=== PATIENT | male | born 1960 | race Caucasian/White ===

== ENCOUNTER → 2021-03-01 | Outpatient (CLI) | payer OTHER ==
--- NOTE | 2021-03-01 15:25 | CT ---
EXAMINATION TYPE: CT angio neck DATE OF EXAM: 03/01/2021 HISTORY: Occlusion and stenosis of unspecified carotid; bilateral carotid artery abnormalities per pa tient. COMPARISON: NONE CT DLP: 320.2 mGycm. Automated Exposure Control for Dose Reduction was Utilized. TECHNIQUE: CTA scan of the neck is performed with IV Contrast, patient injected with 65 mL of Isovue 370, axial images are obtained, coronal and sagittal reformatted images are reviewed. 3D reconstruct ed images are created on an independent workstation and reviewed. FINDINGS: Carotid/Vascular Structures: Normal three-vessel origin from aortic arch. No significant plaque or st enosis. Normal origin right common carotid artery from the right brachiocephalic artery. No signific ant plaque or stenosis in the common carotid arteries bilaterally. Moderate mixed plaque left carotid bulb is present extending into proximal internal carotid artery without significant stenosis. Modera te calcified plaque supraclinoid segment distal left internal carotid artery without significant sten osis. Patent left external carotid artery without significant stenosis. More severe noncalcified plaque right carotid bulb extends into proximal internal and external caroti d arteries causing less prominent but significant stenosis in the external carotid artery. There is s evere stenosis at origin of the right internal carotid artery seen best image 52 series 4. Lumen diam eter narrowed to 0.6 mm at this level short segment with reconstitution to 4.5 mm distal to this. GILBERTO CET remainder right internal carotid artery shows mild to moderate calcified plaque in the petrous an d supraclinoid segment with tortuosity but no additional significant stenosis. Other: Partial visualization of post-CABG changes. IMPRESSION: Significant focal stenosis at origin of the right internal carotid artery measured near 9 0 % by NASCET criteria.
== END | disposition home or self-care (01) ==
LOC: RADCTMAIN 13:29
PROVIDERS: ATTEND Internal Medicine Interventional Cardiology
DX: I65.21 Occlusion and stenosis of right carotid artery (principal)
CPT/HCPCS: 70498; Q9967

== ENCOUNTER → 2021-03-09 | Outpatient (CLI) | payer OTHER ==
[2021-03-09 16:11] LABS: HCT 40.4 % (39.6-50.0); HGB 13.1 g/dL (13.0-17.0); MCHC 32.4 g/dL (32.0-37.0); MCV 92.7 fL (80.0-97.0); Platelet Count 239 X 10*3/uL (140-440); RBC 4.36 X 10*6/uL (4.40-5.60); RDW 13.2 % (11.5-14.5); WBC 9.39 X 10*3/uL (4.50-10.00)
[2021-03-09 21:08] LABS: African American GFR (CKD) 93.7 (60.0-200.0); Anion Gap 9.4 mmol/L (4.00-12.00); Carbon Dioxide 24.6 mmol/L (21.6-31.8); Non-African American GFR(CKD) 80.9 (60.0-200.0); Potassium 4.7 mmol/L (3.5-5.5)
== END | disposition home or self-care (01) ==
LOC: LABWHC1 10:46
PROVIDERS: ATTEND Internal Medicine Interventional Cardiology
DX: Z01.812 Encounter for preprocedural laboratory examination (principal); I25.5 Ischemic cardiomyopathy
CPT/HCPCS: 36415; 80051; 82565; 83735; 84520; 85027

== ENCOUNTER 2021-03-15 09:27 | Day surgery (SDC) | payer OTHER ==
[2021-03-11 08:50] VITALS: BMI 26.5
[~2021-03-15 09:27] MED LIST: ALPRAZolam 0.25 MG TAB PO PRN; ALPRAZolam 0.5 MG TAB PO PRN; ASPIRIN 325 MG TAB PO STA; HEPARIN SODIUM,PORCINE 10,000 UNIT in SODIUM CHLORIDE 0.9% 1,000 ML IRRIGATION PRN; HEPARIN SODIUM,PORCINE 2,500 UNIT in SODIUM CHLORIDE 0.9% 250 ML IRRIGATION PRN; NITROGLYCERIN SL TABS 0.4 MG TAB SUBLINGUAL PRN; SODIUM CHLORIDE 0.9% 1,000 ML in EMPTY BAG 1 BAG IV ONE
[2021-03-15] MEDS ORDERED: SODIUM CHLORIDE 0.9% 1,000 ML IV ONE (09:49)
[2021-03-15] MEDS ORDERED: LIDOCAINE 1% INJ 10MG/ML (20 ML MDV) ONE (10:38)
[2021-03-15] MEDS ORDERED: MIDAZOLAM 2 MG/2 ML VIAL IV ONE (11:11)
[2021-03-15] MEDS ORDERED: LIDOCAINE 1% INJ 10MG/ML (20 ML MDV) SQ ONE (11:12)
[2021-03-15] MEDS ORDERED: IOPAMIDOL-370 100ML BTL INJ ONE ×2 (11:32→12:03)
[2021-03-15] MEDS: HEPARIN SODIUM 1,000 UN/ML (10ML VL) IV ONE ×2 (11:39→11:52)
[2021-03-15] MEDS ORDERED: NITROGLYCERIN 1000MCG/10ML SYRINGE INTRACORON ONE (11:58)
[2021-03-15] MEDS ORDERED: TICAGRELOR 90 MG TAB ONE (12:00)
[2021-03-15] MEDS ORDERED: TICAGRELOR 90 MG TAB PO ONE (12:02)
[2021-03-15] MEDS ORDERED: SODIUM CHLORIDE 0.9% 1,000 ML IV SCH (12:30)
--- NOTE | 2021-03-15 19:43 | CC ---
CARDIAC CATHETERIZATION REPORT DATE OF SERVICE: 03/15/2021. PROCEDURE PERFORMED: 1. Left heart catheterization and coronary angiography with selective injection of bypass grafts. 2. PTCA and stenting of saphenous vein graft to the obtuse marginal 1 branch of circumflex with a drug-eluting stent. PERFORMED BY: Dr. Anna Kam. Moderate conscious sedation time was 54 minutes. The patient was administered Versed. Oxygen saturation, hemodynamics and EKG were monitored closely. CLINICAL INFORMATION: Mr. Tung Landis is a 61-year-old gentleman with a known history of CAD, prior aortocoronary bypass surgery in 2009. He also has hypertension, hyperlipidemia. He underwent aortocoronary bypass surgery after cardiac cath revealed significant left main and left system disease. He had a TIJERINA to LAD, separate vein graft to the diagonal, and another vein graft to the OM1 and vein graft to the OM2. RCA was not grafted at that time, was free of significant disease. There was some PLV narrowing and PLV was a small branch. Because of significant symptoms of angina and a positive stress test, he was advised cardiac cath after due discussion. He also has a significant disease involving his right internal carotid artery at the origin as well. PROCEDURE NOTE: Under strict aseptic precautions and local anesthesia, a 6-Sami introducer was placed in the right femoral artery. Using a standard left Deidra catheter, I performed selective coronary angiography of the left system. A Jessica catheter was used to perform selective coronary angiography of the TIJERINA graft, 2 graft to the circumflex system, OM1 and OM2. I used an AR2 catheter to perform selective coronary angiography of a totally occluded vein graft to the diagonal. A pigtail catheter was used to check LV pressure but LV gram was not performed. I then made a decision to proceed with PCI of the OM1 graft and performed this expeditiously. CARDIAC CATHETERIZATION FINDINGS: Left ventricular end-diastolic pressure was about 10-12 mmHg without any gradient across aortic valve. CORONARY ANGIOGRAPHY FINDINGS: LEFT MAIN CORONARY ARTERY: This is a long vessel, highly diseased 70-80 percent and bifurcates into LAD and circumflex. The entire left main appears to be diseased, has about a 70% to 80% blockage. LEFT ANTERIOR DESCENDING CORONARY ARTERY: This vessel is occluded in the midportion with some competitive flow. The opacified segment is highly diseased. Diagonal branch comes off which also appears to have diffuse disease. LEFT POSTERIOR CIRCUMFLEX CORONARY ARTERY: This vessel has a 99% proximal stenosis, gives off a 1st obtuse marginal branch that is totally occluded with limited flow. RIGHT CORONARY ARTERY: Dominant vessel which was free of significant disease before, is now totally occluded with bridging collaterals, fills the distal portion of the RCA. It appears that the vessel has bridging collaterals, is totally occluded and there is a gap of more than 30 mm. There is a conus branch that comes off which also provides some collaterals to the distal RCA. Saphenous vein graft to the obtuse marginal branch of circumflex: This graft is patent in the proximal and midportion. Distal portion of the body of the graft has a 95% stenosis. Then beyond the insertion site, the OM1 also has a 95% stenosis. The flow is somewhat sluggish into the OM. Saphenous vein graft to the second obtuse marginal branch of circumflex: This graft is widely patent. Has no significant disease at its origin, course and insertion site and opacified segment of the second obtuse marginal is widely patent with remarkably good flow and mild diffuse disease. The saphenous vein graft to the diagonal branch: This graft is totally occluded and seen as a stump. Left internal mammary artery graft to LAD: This graft is tortuous, free of significant disease. The TIJERINA opacifies the entire LAD. The distal LAD has a 95% stenosis before it curves over the apex. The proximal portion of the LAD is also filled. It goes back and opacifies the diagonal branch. The opacified LAD has significant diffuse disease seen throughout in the proximal portion, but distal to the insertion site, the LAD is of good caliber, free of significant disease, except the distal segment there is a 95% stenosis with limited amount of myocardium beyond the stenosis. FINAL IMPRESSION: This patient has normal filling pressures. No gradient. There is significant progression of disease. [place] RCA, which was free of significant disease, now has 100% stenosis with bridging collaterals. There is total occlusion of the LAD and circumflex. The left main has 80% stenosis. Two vein grafts to the obtuse marginal were opacified. One is patent with good flow. Obtuse marginal 2 is patent with good flow but obtuse marginal 1 has a 95% stenosis. Flow is sluggish. The vein graft to the diagonal is occluded. The TIJERINA to LAD is patent but there is diffuse disease in the proximal LAD as well as the diagonal branch. LV gram was not performed. RECOMMENDATION: I am advising PCI of obtuse marginal 1. I will refer him to [facility] for C2 intervention of RCA which is a somewhat difficult procedure with a low success rate. PCI PROCEDURE DETAILS: I used a left coronary bypass guide catheter of 6-Sami caliber and a run-through wire. Predilatation was performed with a 15 mm long NC Trek balloon of 2.5 caliber. I deployed a 2.75 caliber 12 mm Xience stent in the OM1 and distal to the insertion site into the [place] vessel. Excellent angiographic result was achieved. The proximal portion was addressed with a 3.25 caliber 12 mm Xience stent and this was all in the body of the vein graft. The patient did not have significant symptoms. Excellent angiographic result was achieved without complication. The sheath was taken out and Angio-Seal device used to secure hemostasis. He received intravenous heparin and ACT was 275. He also received 180 mg of Brilinta. The patient was sent to the room in stable condition. The results were discussed with the patient as well as his sister by phone. I expect he will be discharged tomorrow and I will see him in one week and we will address [employer] intervention of RCA at that time. MMODL / IJN: [id number] /
[2021-03-15] MEDS ORDERED: ATORVASTATIN 80 MG TAB PO SCH (21:00)
[2021-03-16 07:45] VITALS: BP 141/77; PULSE 62; RESP 16; TEMP 97.8
[2021-03-16] MEDS ORDERED: ISOSORBIDE MONONITRATE ER 60 MG TAB.ER.24H PO SCH (09:00)
[2021-03-16] MEDS ORDERED: TICAGRELOR 90 MG TAB PO SCH (09:00)
[2021-03-16] MEDS ORDERED: ASPIRIN 81 MG PO SCH (09:00)
[2021-03-16] MEDS ORDERED: METOPROLOL SUCCINATE (ER) 100 MG TAB.ER.24H PO SCH (09:00)
[2021-03-16] MEDS ORDERED: LOSARTAN 25 MG TAB PO SCH (09:00)
--- NOTE | 2021-03-16 14:11 | P.DS ---
Providers Attending physician: Hans Kam Primary care physician: Alexandro [facility] Hospital Course: This is a pleasant 61-year-old male status post PCI of the SVG to on aspirin and Brilinta. He has no symptoms of chest discomfort, repeat EKG this morning unremarkable with no evidence of ST or T-wave abnormalities. Blood pressure 141/77 heart rate 62 afebrile maintaining oxygen saturation on room air. Right femoral access site soft, nontender with no evidence of hematoma, ecchymosis or bleeding. Prescription has been sent to the pharmacy for Brilinta 90 mg twice a day and he has 100% insurance coverage. He is also on Toprol, losartan, Imdur, atorvastatin and aspirin. He will follow-up in the office with Dr. Kam next week. He has been advised to call the office if he has any symptoms of chest discomfort. The importance of dual antiplatelet therapy discussed in great detail. Patient Condition at Discharge: Stable Plan - Discharge Summary Discharge Rx Participant: Yes New Discharge Prescriptions: New Aspirin 81 mg PO DAILY chew Ticagrelor [Brilinta] 90 mg PO BID #60 tab Losartan [Cozaar] 25 mg PO DAILY #90 tab Nitroglycerin Sl Tabs [Nitrostat] 0.4 mg SUBLINGUAL Q5M PRN #1 bottle PRN Reason: Chest Pain Continue Multivitamins, Thera [Multivitamin (formulary)] 1 tab PO DAILY Metoprolol Succinate [Toprol XL] 100 mg PO QAM Isosorbide Mononitrate ER [Imdur] 60 mg PO DAILY Atorvastatin [Lipitor] 80 mg PO HS No Action Aspirin 325 mg PO DAILY Discharge Medication List Aspirin 325 mg PO DAILY 03/11/21 [History] Atorvastatin [Lipitor] 80 mg PO HS 03/11/21 [History] Isosorbide Mononitrate ER [Imdur] 60 mg PO DAILY 03/11/21 [History] Metoprolol Succinate [Toprol XL] 100 mg PO QAM 03/11/21 [History] Multivitamins, Thera [Multivitamin (formulary)] 1 tab PO DAILY 03/11/21 [History] Aspirin 81 mg PO DAILY chew 03/16/21 [Rx] Losartan [Cozaar] 25 mg PO DAILY #90 tab 03/16/21 [Rx] Nitroglycerin Sl Tabs [Nitrostat] 0.4 mg SUBLINGUAL Q5M PRN #1 bottle 03/16/21 [Rx] Ticagrelor [Brilinta] 90 mg PO BID #60 tab 03/16/21 [Rx] Follow up Appointment(s)/Referral(s): Hans Kam MD [STAFF PHYSICIAN] - 03/21/21 10:15 am Patient Instructions/Handouts: Left Heart Catheterization (DC), Procedural Sedation (ED), Angio-Seal (DC)
== END 2021-03-16 14:15 ==
LOC: CATHCVL 09:27 → 6NMEDSUR 14:57 → CATHCVL 03-16 14:15
PROVIDERS: ATTEND Internal Medicine Interventional Cardiology
DX: I25.119 Atherosclerotic heart disease of native coronary artery with unspecified angina pectoris (principal); I25.719 Atherosclerosis of autologous vein coronary artery bypass graft(s) with unspecified angina pectoris; I25.82 Chronic total occlusion of coronary artery; E78.5 Hyperlipidemia, unspecified; I10 Essential (primary) hypertension; E78.00 Pure hypercholesterolemia, unspecified; R09.89 Other specified symptoms and signs involving the circulatory and respiratory systems; Z82.49 Family history of ischemic heart disease and other diseases of the circulatory system; Z79.899 Other long term (current) drug therapy; Z79.82 Long term (current) use of aspirin
CPT/HCPCS: 93458; 87635; C9604; C1769 ×4; C1760; C1887; C1725; C1894; C1874; J2250; J2001; J1644; Q9967

== ENCOUNTER 2021-04-01 09:30 | Inpatient (IN) | payer OTHER ==
[2021-03-31 10:02] VITALS: BMI 26.2
[~2021-04-01 09:30] MED LIST changes: +ASPIRIN 325 MG TAB PO PRN; -ASPIRIN 325 MG TAB PO STA; +CLOPIDOGREL 75 MG TAB PO PRN; -HEPARIN SODIUM,PORCINE 10,000 UNIT in SODIUM CHLORIDE 0.9% 1,000 ML IRRIGATION PRN; -HEPARIN SODIUM,PORCINE 2,500 UNIT in SODIUM CHLORIDE 0.9% 250 ML IRRIGATION PRN; +RX INFO: IV CONTRAST WAS GIVEN 1 EACH MISC MISCELLANE PRN
[2021-04-01] MEDS ORDERED: LIDOCAINE 1% INJ 10MG/ML (20 ML MDV) SQ ONE (12:16)
[2021-04-01] MEDS ORDERED: IOPAMIDOL-250 100ML BTL INTRAARTER ONE ×2 (13:06→13:07)
[2021-04-01] MEDS ORDERED: NITROGLYCERIN SL TABS 0.4 MG TAB SUBLINGUAL PRN (13:08)
[2021-04-01] MEDS ORDERED: CLOPIDOGREL 75 MG TAB PO ONE (13:08)
[2021-04-01] MEDS ORDERED: MAG HYDROX/AL HYDROX/SIMETH 30 ML CUP PO PRN (13:09)
[2021-04-01] MEDS ORDERED: ATROPINE SULFATE 0.1 MG/ML 10ML SYRINGE IV PRN (13:09)
[2021-04-01 13:39] LABS: Glucose,Whole Blood 104 mg/dL (75-99)
--- NOTE | 2021-04-01 13:57 | IR ---
EXAMINATION TYPE: IR stent intravas non coronary DATE OF EXAM: 04/01/2021 CLINICAL HISTORY: Right carotid stenosis. TECHNIQUE: Fluoroscopy. COMPARISON: None. FINDINGS: Fluoroscopic guidance was provided during right carotid stenosis treatment procedure perfo rmed by Dr. Deshpande. A total of 14 minutes of fluoroscopic time was utilized during the procedure and 1 75 spot images was acquired. Please refer to procedure note for further details. IMPRESSION: As Above.
[2021-04-01] MEDS: SODIUM CHLORIDE 0.9% 1,000 ML IV SCH (14:03)
[2021-04-01] MEDS: DOPamine DRIP 800 MG in WATER FOR INJECTION 1 250ML.BAG IV SCH (15:32)
[2021-04-01] MEDS: NITROGLYCERIN SL TABS 0.4 MG TAB SUBLINGUAL PRN ×2 (17:15→17:23)
--- NOTE | 2021-04-01 18:31 | AN ---
ANGIOGRAPHY REPORT DATE OF SERVICE: 04/01/2021 PERFORMING PHYSICIAN: Bola Deshpande MD. PROCEDURE PERFORMED: 1. Successful stenting of the right internal carotid artery using 7-10 x 30 mm Acculink carotid stent with an excellent angiographic result and reduction of stenosis from 95% to 0% with adjunctive use of Emboshield JOHNNY distal protection filter. 2. Selective right common and right internal carotid artery angiogram. 3. An aortic arch angiogram. 4. Right common femoral artery angiogram. INDICATION: This is a 61-year-old gentleman who sees Dr. Kam in the office as an outpatient with history of coronary artery disease and prior coronary artery bypass grafting who was diagnosed recently with critical disease involving the right internal carotid artery based on CTA. Because of that, he was brought today to undergo an intervention. APPROACH: Right common femoral artery. COMPLICATION: None. LEVEL OF SEDATION: Moderate with sedation length of 48 minutes. PROCEDURE DESCRIPTION: After obtaining informed consent, the patient was brought to the cardiac laborer yard. The right common femoral artery was cannulated using micropuncture technique. Under ultrasound guidance, the micropuncture wire passed easily then I placed a 90 cm 6- Irish shuttle sheath at the right common femoral artery and the sheath was advanced all the way to the descending aorta. At that point, anticoagulation was initiated using heparin and the patient was given 6000 units of heparin IV with continuous ACT monitoring throughout the procedure. Subsequently, I did an aortic arch angiogram using 6-Irish pigtail catheter. That was performed in the POLISH projection and using a power injection and using digital substraction. The aortic arch revealed type 1-2 aortic arch. Subsequently, I did select the right common carotid artery using 0.035 stiff Glidewire with the RADHA 2 catheter. Subsequently I did advance the RADHA 2 over the wire to the right common carotid artery and then I did advance the shuttle sheath over the wire and the catheter to the right common carotid artery. Selective right common and right internal carotid artery angiogram were performed and that revealed critical stenosis involving the ostial of the right internal carotid artery. I did deploy the Emboshield JOHNNY distal protection filter, which was prepped initially under saline and I made sure there was no bubble in the filter. The filter was deployed under fluoroscopic guidance. Subsequently I pre-dilated the lesion using 3 mm balloon which was inflated under 8 atmospheres for 20 seconds before I deployed the Acculink 7-10 x 30 mm stent which was positioned under fluoroscopy guidance and deployed under fluoroscopic guidance. I post-dilated the stent using 5.5 mm balloon. The final angiogram showed excellent angiographic results with reduction of stenosis from 95% to 0% and the procedure was completed without any complication. After that I did exchange my long sheath into short sheath using a 0.035 stiff Glidewire before I did selective right common femoral artery angiogram. The procedure was completed without any complication. POSTPROCEDURE MANAGEMENT: 1. Dual anti-platelet therapy. 2. Risk factor modifications. 3. Follow up with the patient. MMODL / IJN: [id number] /
--- NOTE | 2021-04-01 18:50 | LTR ---
04/01/2021 RE: Tung Landis Dear Dr. Jacobo: Mr. Tung Landis underwent today successful stenting of the right internal carotid artery with good angiographic results and without any complication. I want to thank you for allowing me to participate in his care and please do not hesitate to call if you have any question. Sincerely, Bola Deshpande MD MMBRIEL / PRESTONN: [id number] /
[2021-04-01] MEDS: ATORVASTATIN 40 MG TAB PO SCH (19:49)
[2021-04-01] MEDS: CLOTRIMAZOLE/BETAMETH 1-0.05% CREAM 45 GM TUBE TOPICAL SCH (19:49)
[2021-04-01] MEDS ORDERED: ATORVASTATIN 80 MG TAB PO SCH (21:00)
[2021-04-02] MEDS: SODIUM CHLORIDE 0.9% 1,000 ML IV SCH (03:58)
[2021-04-02 04:11] LABS: Basophils % (A) 0 %; Eosinophils # (A) 0.3 k/uL (0-0.7); Eosinophils % (A) 3 %; HCT 34.4 % (39.0-53.0); HGB 11.8 gm/dL (13.0-17.5); Lymphocytes # (A) 2.1 k/uL (1.0-4.8); Lymphocytes % (A) 23 %; MCH 30.7 pg (25.0-35.0); MCHC 34.4 g/dL (31.0-37.0); MCV 89.3 fL (80.0-100.0); Mean Platelet Volume 7.5; Monocytes # (A) 0.6 k/uL (0-1.0); Monocytes % (A) 7 %; Neutrophils % (A) 65 %; Platelet Count 210 k/uL (150-450); RBC 3.85 m/uL (4.30-5.90); RDW 13.3 % (11.5-15.5); WBC 9.2 k/uL (3.8-10.6)
[2021-04-02 04:22] LABS: Calcium 8.7 mg/dL (8.4-10.2); Potassium 4.3 mmol/L (3.5-5.1)
[2021-04-02] MEDS: ASPIRIN 325 MG TAB PO SCH (08:11)
[2021-04-02] MEDS: CLOPIDOGREL 75 MG TAB PO SCH (08:11)
[2021-04-02] MEDS: MULTIVITAMINS, THERA 1 EACH TAB PO SCH (08:11)
[2021-04-02] MEDS: CLOTRIMAZOLE/BETAMETH 1-0.05% CREAM 45 GM TUBE TOPICAL SCH ×2 (08:16→20:55)
[2021-04-02] MEDS ORDERED: ASPIRIN 81 MG PO SCH (09:00)
[2021-04-02] MEDS ORDERED: METOPROLOL SUCCINATE (ER) 100 MG TAB.ER.24H PO SCH (09:00)
[2021-04-02] MEDS ORDERED: LOSARTAN 25 MG TAB PO SCH (09:00)
[2021-04-02] MEDS ORDERED: CLOPIDOGREL 75 MG TAB PO SCH (09:00)
[2021-04-02] MEDS ORDERED: ISOSORBIDE MONONITRATE ER 60 MG TAB.ER.24H PO SCH (09:00)
--- NOTE | 2021-04-02 09:36 | P.PN ---
Subjective Progress Note Date: 04/02/21 Principal diagnosis: Carotid disease This is a 61-year-old gentleman who was admitted to the hospital yesterday and underwent successful stenting of the right internal carotid artery using Aculink carotid stent with an excellent angiographic results and reduction of stenosis from 95% to 0% and without any complication. The patient was seen this morning. He is experiencing a very mild jaw pain. Initially we thought the jaw pain is related to potential angina but he never h ad jaw pain with his angina before and retrospectively I think the drop pain could be because of jailing the right external carotid artery where the stent in the right internal carotid artery. Anyway the jaw pain is better. No neurologic symptoms and no focal neurologic finding. Otherwise he denies any chest pain or chest discomfort or shortness of breath or dizziness or lightheadedness or any feeling of heart racing or fluttering. He has been maintaining normal sinus mechanism. He was on dopamine yesterday that he has been off dopamine this morning. I want to keep the patient overnight for 1 more day and potentially he can be transferred to [facility]. just because the blood pressure is marginal. I will follow-up with him in the morning and potentially discharge home tomorrow morning. He is on dual antiplatelet therapy along with a statin. The right groin is soft and nontender and without any bruises. Objective - Vital Signs Vital signs: Vital Signs Temp 97.6 F 04/02/21 08:00 Pulse 56 L 04/02/21 08:00 Resp 14 04/02/21 08:00 BP 106/58 04/02/21 08:00 Pulse Ox 96 04/02/21 08:00 Intake & Output 04/01/21 04/02/21 04/02/21 18:59 06:59 18:59 Intake Total 873.022 9884 626.594 Output Total 300 1100 Balance 216.094 9770 -473.406 Weight 87.8 kg 90 kg Intake: IV 200 1200 200 Sodium Chloride 0.9% 1, 1200 200 000 ml @ 100 mls/hr IV . Q10H [facility]GER Rx#:[id number] Intake, IV Titration 522.361 100 66.594 Amount DOPamine DRIP 800 mg In 22.361 66.594 Water For Injection 1 250ml.bag @ 5 MCG/KG/MIN 8.231 mls/hr IV .Q24H [facility]GER Rx#:[id number] Sodium Chloride 0.9% 1, 500 100 000 ml @ 100 mls/hr IV . Q10H [facility]GER Rx#:[id number] Oral 360 Output: Urine 300 1100 Other: # Voids 1 ABP, PAP, CO, CI - Last Documented Arterial Blood Pressure 104/46 - Constitutional General appearance: Present: no acute distress - Respiratory Respiratory: bilateral: CTA - Cardiovascular Rhythm: regular Heart sounds: normal: S1, S2 - Labs CBC & Chem 7: 04/02/21 03:46 04/02/21 03:46 Labs: Abnormal Lab Results - Last 24 Hours (Table) 04/01/21 04/02/21 04/02/21 Range/Units 13:36 03:46 03:46 RBC 3.85 L (4.30-5.90) m/uL Hgb 11.8 L (13.0-17.5) gm/dL Hct 34.4 L (39.0-53.0) % BUN 25 H (9-20) mg/dL Glucose 132 H (74-99) mg/dL POC Glucose (mg/dL) 104 H (75-99) mg/dL Assessment and Plan Assessment: Assessment #1 critical right internal carotid artery disease and status post a stenting #2 coronary artery disease #3 hypertension #4 dyslipidemia Plan #1 continue holding any blood pressure medications #2 continue monitoring the blood pressure and heart rate #3 continue dual antiplatelet therapy along with statin #4 monitor the patient for additional 24 hours #5 possible discharge home tomorrow
[2021-04-02] MEDS: DOPamine DRIP 800 MG in WATER FOR INJECTION 1 250ML.BAG IV SCH (16:10)
[2021-04-02] MEDS: ATORVASTATIN 40 MG TAB PO SCH (20:56)
[2021-04-02] MEDS: NITROGLYCERIN SL TABS 0.4 MG TAB SUBLINGUAL PRN (23:49)
[2021-04-03 05:37] LABS: Basophils % (A) 0 %; Eosinophils # (A) 0.4 k/uL (0-0.7); Eosinophils % (A) 6 %; HCT 33.7 % (39.0-53.0); HGB 11.7 gm/dL (13.0-17.5); Lymphocytes # (A) 2.1 k/uL (1.0-4.8); Lymphocytes % (A) 32 %; MCH 31.1 pg (25.0-35.0); MCHC 34.9 g/dL (31.0-37.0); MCV 89.2 fL (80.0-100.0); Mean Platelet Volume 7.7; Monocytes # (A) 0.5 k/uL (0-1.0); Monocytes % (A) 7 %; Neutrophils # (A) 3.5 k/uL (1.3-7.7); Neutrophils % (A) 53 %; Platelet Count 181 k/uL (150-450); RBC 3.77 m/uL (4.30-5.90); RDW 13.2 % (11.5-15.5); WBC 6.6 k/uL (3.8-10.6)
[2021-04-03 06:06] LABS: ALT 31 U/L (4-49); AST 29 U/L (17-59); African American GFR (CKD) >90 (>60 ml/min/1.73 sqM); Albumin 3.2 g/dL (3.5-5.0); Alkaline Phosphatase 61 U/L (38-126); Anion Gap 5 mmol/L; Blood Urea Nitrogen 20 mg/dL (9-20); Calcium 8.2 mg/dL (8.4-10.2); Carbon Dioxide 26 mmol/L (22-30); Chloride 109 mmol/L (98-107); Glucose 99 mg/dL (74-99); Non-African American GFR(CKD) 89 (>60 ml/min/1.73 sqM); Potassium 4.7 mmol/L (3.5-5.1); Sodium 140 mmol/L (137-145); Total Bilirubin <0.1 mg/dL (0.2-1.3); Total Protein 5.8 g/dL (6.3-8.2)
[2021-04-03] MEDS: CLOPIDOGREL 75 MG TAB PO SCH (07:53)
[2021-04-03] MEDS: MULTIVITAMINS, THERA 1 EACH TAB PO SCH (07:53)
[2021-04-03] MEDS: CLOTRIMAZOLE/BETAMETH 1-0.05% CREAM 45 GM TUBE TOPICAL SCH (07:53)
[2021-04-03] MEDS: ASPIRIN 325 MG TAB PO SCH (07:53)
[2021-04-03 09:06] VITALS: BP 133/69; PULSE 68; RESP 9; TEMP 98.4
--- NOTE | 2021-04-03 12:28 | DS ---
DISCHARGE SUMMARY ADMISSION DATE: April 01, 2021. DISCHARGE DATE: April 03, 2021. BRIEF HISTORY: This is a 61-year-old gentleman who underwent 2 days ago successful stenting of the right internal carotid artery with an excellent angiographic results and without any complication from right groin approach. The patient was seen yesterday where he was experiencing mild right jaw pain, which I do think is related to jailing of the right external carotid artery and because his pressure was marginal and earlier yesterday he was on vasopressors, I kept the patient overnight for 1 more day. He was seen this morning. He is off vasopressors. He is stable hemodynamically. I am going to discharge the patient on dual anti-platelet therapy along with high intensity statin. The right groin is soft and nontender and without any bruises. The physical examination is unremarkable with regular rate and rhythm and clear breathing sounds bilaterally. MMODL / IJN: [id number] /
== END 2021-04-03 13:44 | disposition home or self-care (01) | DRG 36 ==
LOC: 2ORMAIN 10:39 → 2SICU 13:12
PROVIDERS: ADMIT Internal Medicine Interventional Cardiology; ATTEND Internal Medicine Interventional Cardiology
PROC: 037K3DZ Dilation of Right Internal Carotid Artery with Intraluminal Device, Percutaneous Approach (ICD-10-PCS; principal; 2021-04-01 11:30)
DX: I65.21 Occlusion and stenosis of right carotid artery (principal); E78.00 Pure hypercholesterolemia, unspecified; Z20.822 Contact with and (suspected) exposure to COVID-19; E78.5 Hyperlipidemia, unspecified; I25.10 Atherosclerotic heart disease of native coronary artery without angina pectoris; I10 Essential (primary) hypertension; R68.84 Jaw pain; Z79.02 Long term (current) use of antithrombotics/antiplatelets; Z79.82 Long term (current) use of aspirin; Z79.899 Other long term (current) drug therapy; Z95.1 Presence of aortocoronary bypass graft; Z82.49 Family history of ischemic heart disease and other diseases of the circulatory system
CPT/HCPCS: 37215; 80048; 80053; 84484; 85025; 87635

== ENCOUNTER → 2021-05-17 | Outpatient (CLI) | payer OTHER ==
[2021-05-18 00:54] LABS: HCT 40.4 % (39.6-50.0); HGB 13.5 g/dL (13.0-17.0); MCH 30.1 pg (27.0-32.0); MCHC 33.4 g/dL (32.0-37.0); Mean Platelet Volume 10.6 fL (9.5-12.2); Platelet Count 254 X 10*3/uL (140-440); RBC 4.49 X 10*6/uL (4.40-5.60); RDW 13.5 % (11.5-14.5); WBC 12.03 X 10*3/uL (4.50-10.00)
[2021-05-18 01:48] LABS: INR 0.96 (0.90-1.11); Prothrombin Time 10.5 sec (9.9-11.9)
[2021-05-18 06:12] LABS: Anion Gap 12.5 mmol/L (4.00-12.00); BUN/Creat Ratio 12.86 Ratio (12.00-20.00); Calcium 9.7 mg/dL (8.7-10.3); Carbon Dioxide 23.5 mmol/L (21.6-31.8); Magnesium 1.9 mg/dL (1.5-2.4); Non-African American GFR(CKD) 53.5 (60.0-200.0); Potassium 3.8 mmol/L (3.5-5.5)
== END | disposition home or self-care (01) ==
LOC: LABWHC1 16:17
PROVIDERS: ATTEND Internal Medicine Interventional Cardiology
DX: I25.82 Chronic total occlusion of coronary artery (principal)
CPT/HCPCS: 36415; 80048; 83735; 85027; 85610

== ENCOUNTER → 2021-05-19 | Outpatient (CLI) | payer OTHER ==
[2021-05-20 01:12] LABS: Basophils # (A) 0.05 X 10*3/uL (0.00-0.10); Basophils % (A) 0.6 %; Eosinophils # (A) 1.16 X 10*3/uL (0.04-0.35); Eosinophils % (A) 12.8 %; HCT 42.4 % (39.6-50.0); HGB 13.6 g/dL (13.0-17.0); Lymphocytes # (A) 2.31 X 10*3/uL (0.90-5.00); Lymphocytes % (A) 25.6 %; MCH 29.2 pg (27.0-32.0); MCHC 32.1 g/dL (32.0-37.0); Mean Platelet Volume 10.8 fL (9.5-12.2); Monocytes % (A) 8.8 %; Platelet Count 281 X 10*3/uL (140-440); RBC 4.66 X 10*6/uL (4.40-5.60); RDW 13.8 % (11.5-14.5); WBC 9.04 X 10*3/uL (4.50-10.00)
== END | disposition home or self-care (01) ==
LOC: LABWHC1 16:31
PROVIDERS: ATTEND Internal Medicine Interventional Cardiology
DX: Z01.812 Encounter for preprocedural laboratory examination (principal)
CPT/HCPCS: 36415; 85025